=== PATIENT | female | born 2000 | race Caucasian/White ===

== ENCOUNTER 2020-06-10 17:37 | Emergency (ER) | payer SELFPAY ==
[~2020-06-10] VITALS: Ht 175.3 cm; Wt 90.7 kg
[2020-06-10 17:53] VITALS: Ht 175.3 cm; Wt 90.7 kg
[2020-06-10 19:38] VITALS: BP 132/83
== END 2020-06-10 19:38 | disposition home or self-care (01) ==
LOC: ED 17:37
DX: N39.0 Urinary tract infection, site not specified (principal)